=== PATIENT | male | born 1955 | race Caucasian/White ===

== ENCOUNTER → 2025-05-18 09:03 | Outpatient (REF) | payer MEDICARE, OTHER, SELFPAY ==
[2025-05-18 11:43] LABS: Hematocrit 37.6 % (39.0-52.0); Hemoglobin 12.9 g/dL (13.0-18.0); Mean Corp Hgb Conc. 34.3 g/dL (33.0-37.0); Mean Corpuscular Volume 88.5 fL (80.0-94.0); Platelet Count 350 10^3/uL (130-400); Red Cell Dist. Width 13.0 % (11.5-14.5)
[2025-05-18 11:58] LABS: ALT (SGPT) 20 U/L (0-50); AST (SGOT) 27 U/L (17-59); Albumin 4.4 g/dl (3.5-5.0); Alkaline Phosphatase 53 U/L (38-126); Blood Urea Nitrogen 13 mg/dl (9-20); Calcium 9.3 mg/dl (8.4-10.2); Carbon Dioxide 29 mmol/L (22-30); Chloride 93 mmol/L (98-107); Glucose 84 mg/dl (70-99); Potassium 4.6 mmol/L (3.5-5.1); Sodium 131 mmol/L (135-145); Total Protein 7.3 g/dl (6.3-8.2); eGFR > 60.00
== END ==
LOC: SDSPAT 09:03
PROVIDERS: ATTENDING PHYSICIAN Otolaryngology; FAMILY PHYSICIAN Family Medicine
DX: Z01.818 Encounter for other preprocedural examination (principal)
CPT/HCPCS: 36415; 80053; 85027

== ENCOUNTER 2025-05-28 06:13 | Day surgery (SDC) | payer MEDICARE, OTHER, SELFPAY ==
[2025-05-18 14:05] VITALS: BMI 20.1
[2025-05-28] VITALS (9 sets, daily range): BP systolic 122–137; BP diastolic 58–73; BMI 20.1
[2025-05-28] MEDS: NORMOSOL-R/PLASMALYTE-A 1000 IV (06:27)
== END 2025-05-28 10:15 | disposition home or self-care (01) ==
LOC: SDS 06:13
PROVIDERS: ATTENDING PHYSICIAN Otolaryngology
DX: J32.9 Chronic sinusitis, unspecified (principal); J34.2 Deviated nasal septum
CPT/HCPCS: 31255; 88304; 88311